=== PATIENT | female | born 1970 | race Caucasian/White ===

== ENCOUNTER 2019-05-07 12:39 | Emergency (ER) | payer OTHER, SELFPAY ==
[2019-05-07 12:42] VITALS: BP 116/86; PULSE 76; RESP 18; TEMP 36.9; O2SAT 100
--- NOTE | 2019-05-07 12:53 | ED.GENADULT ---
HPI - General Adult General Chief complaint: Dizziness Stated complaint: dizzy/weak Time Seen by Provider: 05/07/19 13:06 Source: patient and RN notes reviewed Mode of arrival: ambulatory Limitations: no limitations History of Present Illness HPI narrative: This is a 48 years old female presents to the office with multiple complaints. Complains of not feeling well/right since yesterday. Described as feeling fatigue. She also reports feeling dizziness/lightheaded this morning with urinary urgency/frequency. She was at work this morning, states her co-worker thought she looks pale; so she checked her blood sugar which was 94. Her son had influenza last week. She works at [employer]. She recently had a thorough blood work include EGK for her pre test for her gastric bypass procedure. She does not smoke. Related Data Home Medications Medication Instructions Recorded Confirmed albuterol sulfate 90 mcg/actuation 2 puff INHALATION Q4H PRN gm 04/25/19 aerosol inhaler alprazolam 0.5 mg tablet 0.5 mg PO TID 04/25/19 buspirone 7.5 mg tablet 15 mg PO BID tablet 04/25/19 levalbuterol HCl 1.25 mg/3 mL 1.25 mg INHALATION Q4H 04/25/19 solution for nebulization trazodone 100 mg tablet 150 mg PO DAILY tablet 04/25/19 Allergies Allergy/AdvReac Type Severity Reaction Status Date / Time No Known Allergies Allergy Verified 05/07/19 12:54 Review of Systems Review of Systems: Narrative: CONSTITUTIONAL: Denies fever EYES: Denies visual changes ENT: Denies sore throat or ears pain. Reports runny nose/congestion contribute to allergies/cold weather CARDIOVASCULAR: Denies chest pain, palpitation, edema RESPIRATORY: Denies wheezing. Reports cough with chest tightness at times contribute to asthma. GASTROINTESTINAL: Denies abdominal pain, nausea, vomiting, diarrhea. GENITOURINARY: Denies blood in urinary or abnormal discharge. SKIN: Denies rash MUSCULOSKELETAL: Denies acute back pain NEUROLOGIC: Reports episodic lightheadedness/dizziness at times. [facility] Past Medical History Medical History Acute midline thoracic back pain Anxiety disorder, unspecified Cervical pain (neck) Chronic fatigue Depression Elevated fasting glucose Fatigue Hx of sleep apnea Hyperlipidemia Hypothyroidism (acquired) Low blood hemoglobin A RUI (obstructive sleep apnea) Persistent headaches Unspecified asthma, uncomplicated Vitamin deficiency, unspecified Weight gain Family History Family History (Updated 05/07/19 @ 13:29 by KYLER Flores) Father Hypertension Other Diabetes mellitus Social History Social History Smoking status: Never smoker Second hand tobacco smoke exposure: No Alcohol intake: current Comments At time of signature, I agree with nursing past medical, surgical, social and family history. There is no relevant family history pertinent to the presenting complaint. Exam Narrative: Exam Narrative: GENERAL: This is a well-nourished, well-developed patient, in no apparent distress. EYES: PERRL. No nystagmus. sclera clear/white. Vision is grossly intact. EARS: External ears normal, auditory canals clear and without drainage, TMs normal without perforation. Hearing grossly intact. NOSE: External nose normal with no obvious nasal discharge, nares without redness, no rhinorrhea. THROAT: Mucous membranes moist, posterior pharynx clear. NECK: Neck supple, non-tender without lymphadenopathy, masses or thyromegaly. CARDIOVASCULAR: Regular rate and rhythm without murmurs, gallops, or rubs. RESPIRATORY: Clear to auscultation. Breath sounds equal bilaterally. No wheezes, rales, or rhonchi. GASTROINTESTINAL: Abdomen soft, non-tender, nondistended. Bowel sounds are active. No hepato-splenomegaly, or palpable masses. No guarding. SKIN: warm, intact with no suspicious lesions or rash, good texture and turgor.
== END 2019-05-07 13:25 | disposition home or self-care (01) ==
PROVIDERS: Emergency Provider Nurse Practitioner; PCP Family Medicine
DX: B34.9 Viral infection, unspecified (principal); F41.9 Anxiety disorder, unspecified; F32.9 Major depressive disorder, single episode, unspecified; E78.5 Hyperlipidemia, unspecified; E03.9 Hypothyroidism, unspecified; G47.33 Obstructive sleep apnea (adult) (pediatric)
CPT/HCPCS: 81003; 87081; 87804; 87880; 99213; G0463

== ENCOUNTER 2019-06-12 10:46 | Outpatient (CLI) | payer OTHER, SELFPAY ==
--- NOTE | ~2019-06-12 | XR_ITS ---
EXAMINATION: XR chest 2V 06/12/2019 10:59 INDICATION: Unspecified asthma. Dyspnea. PROCEDURE: 2 view chest COMPARISON: 06/23/2013 FINDINGS: The lungs are clear. The cardiomediastinal silhouette is within normal limits. There are no pleural effusions. There is no pneumothorax suspected. IMPRESSION: 1: NO ACUTE CARDIOPULMONARY DISEASE. Reviewed, dictated and finalized at location A.
== END 2019-06-12 10:47 | disposition home or self-care (01) ==
LOC: ANHIMG 10:49
PROVIDERS: PCP Family Medicine; Visit Provider Nurse Practitioner Family
DX: J45.909 Unspecified asthma, uncomplicated (principal); R06.02 Shortness of breath
CPT/HCPCS: 71046

== ENCOUNTER 2020-06-01 12:39 | Emergency (ER) | payer OTHER, SELFPAY ==
[2020-06-01 12:50] VITALS: BP 107/66; PULSE 61; RESP 16; TEMP 36.7; O2SAT 98
--- NOTE | 2020-06-01 13:01 | ED.URI ---
HPI - URI/Sore Throat General Chief Complaint: Upper Respiratory Infection Stated Complaint: SORE THROAT/STREP EXPOSURE Time Seen by Provider: 06/01/20 12:50 Source: patient and RN notes reviewed Mode of arrival: ambulatory Limitations: no limitations History of Present Illness HPI Narrative: 49-year-old female presents with concern for sore throat, general fatigue and body aches that started last night. Reports her son who lives in her home had diagnosed strep throat last week. Reports that she also has chronic rhinorrhea, unrelated to her current sore throat. 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 She denies any known fever, chills, sweats, headache, nausea, vomiting, loss of sense of taste or smell. MD elicited complaint: sore throat Related Data Home Medications Medication Instructions Recorded Confirmed buspirone 7.5 mg tablet 15 mg PO BID tablet 04/25/19 05/07/19 levalbuterol HCl 1.25 mg/3 mL 1.25 mg INHALATION Q4H 04/25/19 05/07/19 solution for nebulization trazodone 100 mg tablet 150 mg PO DAILY tablet 04/25/19 05/07/19 duloxetine 60 mg capsule,delayed 60 mg PO DAILY 05/02/20 release Allergies Allergy/AdvReac Type Severity Reaction Status Date / Time No Known Allergies Allergy Verified 05/02/20 16:53 Review of Systems Review of Systems: Narrative: CONSTITUTIONAL: Denies malaise, chills, sweats, or fever. Reports fatigue EYES: Denies visual changes, redness, or discharge. ENT: Reports congestion, sinus pain, otalgia. Reports rhinorrhea and sore throat. CARDIOVASCULAR: Denies chest pain, palpitations, or edema. RESPIRATORY: Reports cough. Denies dyspnea. GASTROINTESTINAL: Denies abdominal pain, nausea, vomiting, diarrhea SKIN: Denies rash or itching. MUSCULOSKELETAL: Denies myalgia. NEUROLOGIC: Denies headache. All systems reviewed & are unremarkable except as noted in HPI and below PMFSH Past Medical History Medical History (Updated 06/01/20 @ 13:03 by Michelle Weinstein NP) Acute midline thoracic back pain Anxiety Anxiety disorder, unspecified BMI 32.0-32.9,adult Cervical pain (neck) Chronic fatigue Depression Elevated fasting glucose Fatigue Hx of sleep apnea Hyperlipidemia Hypothyroidism (acquired) Low blood hemoglobin A RUI (obstructive sleep apnea) Persistent headaches Unspecified asthma, uncomplicated Vitamin deficiency, unspecified Weight gain Surgical History Surgical History History of sleeve gastrectomy Family History Family History Father Hypertension Other Diabetes mellitus Social History Social History Smoking status: Never smoker Second hand tobacco smoke exposure: No Alcohol intake: current Comments At time of signature, agree with nursing past medical, surgical, social and family history. There is no relevant family history pertinent to the presenting complaint Exam Narrative: Exam Narrative: GENERAL: Well-appearing, well-nourished, and in no acute distress. HEAD: Normocephalic EYES: PERRLA, conjunctivae clear ENT: Nares clear, turbinates erythematous, clear discharge. Mucous membranes moist. TM pearly bonner with dull light reflex bilaterally; no tragal tenderness. Oropharynx erythematous without lesions. Tonsils enlarged and without exudate, no drooling, no hoarseness, no trismus, uvula midline. NECK: Supple. No lymphadenopathy CHEST: Clear to auscultation, breath sounds equal. No wheezing, rhonchi, rales, or stridor. No respiratory distress, speaks in full sentences. HEART: Regular rate and rhythm. No murmur heard. SKIN: Warm, dry, no rash. NEURO: Alert and oriented x3. PSYCH: Normal mood and affect Course Course Emergency Course: Patient is aware of diagnosis, understands and agrees to treatment plan. Anticipatory guidance given. Patient agree
== END 2020-06-01 13:07 | disposition home or self-care (01) ==
PROVIDERS: Emergency Provider Nurse Practitioner; PCP Family Medicine
DX: J03.90 Acute tonsillitis, unspecified (principal); Z20.818 Contact with and (suspected) exposure to other bacterial communicable diseases; F41.9 Anxiety disorder, unspecified; F32.9 Major depressive disorder, single episode, unspecified; G47.30 Sleep apnea, unspecified; E78.5 Hyperlipidemia, unspecified; E03.9 Hypothyroidism, unspecified; G47.33 Obstructive sleep apnea (adult) (pediatric); Z98.84 Bariatric surgery status
CPT/HCPCS: 87081; 87880; 99213; G0463

== ENCOUNTER 2020-10-13 15:55 | Emergency (ER) | payer OTHER, SELFPAY ==
[2020-10-13 16:05] VITALS: BP 101/70; PULSE 77; RESP 17; TEMP 36.4; O2SAT 98
[2020-10-13] MEDS: ONDANSETRON HCL ODT 4 MG TABLET PO (16:18)
--- NOTE | 2020-10-13 16:39 | ED.URI ---
HPI - URI/Sore Throat General Chief Complaint: Upper Respiratory Infection Stated Complaint: Weakness,Shortness of breathe Source: patient and RN notes reviewed Mode of arrival: ambulatory History of Present Illness HPI Narrative: This is a 49-year-old female who presented to urgent care with complaints of weakness, fatigue, shortness of breath and nausea and reported hypotensive. According to patient's her blood pressure earlier was 106/70. According to patient symptoms started last night. Productive cough, headache, vomiting, diarrhea,CP, palpitation, extremity numbness, lightheadedness, dizziness, constipation, diarrhea, chills, or fever. Patient Covid test negative treated for common cold Related Data Home Medications Medication Instructions Recorded Confirmed buspirone 7.5 mg tablet 15 mg PO BID tablet 04/25/19 10/13/20 trazodone 100 mg tablet 150 mg PO DAILY tablet 04/25/19 10/13/20 Allergies Allergy/AdvReac Type Severity Reaction Status Date / Time No Known Allergies Allergy Verified 10/13/20 16:23 Review of Systems Review of Systems: A 14 organ system Review of Systems was performed and pertinent positives included in the HPI, otherwise remaining ROS is negative. [facility] Past Medical History Medical History (Updated 10/13/20 @ 16:32 by ERMIAS Ramachandran) Acute midline thoracic back pain Anxiety Anxiety disorder, unspecified BMI 32.0-32.9,adult Cervical pain (neck) Chronic fatigue Depression Elevated fasting glucose Fatigue Hx of sleep apnea Hyperlipidemia Hypothyroidism (acquired) Low blood hemoglobin A RUI (obstructive sleep apnea) Persistent headaches Unspecified asthma, uncomplicated Vitamin deficiency, unspecified Weight gain Surgical History Surgical History History of sleeve gastrectomy Family History Family History Father Hypertension Other Diabetes mellitus Social History Social History Smoking status: Never smoker Second hand tobacco smoke exposure: No Alcohol intake: current Gender identity (if verbalized by the patient): Female Exam Narrative: GENERAL: This is a well-nourished, well-developed patient, in no apparent distress. HEAD: normocephalic, atraumatic. EYES: PERRL. Sclera clear/white. Vision is grossly intact. EARS: External ears normal, auditory canals clear and without drainage, TMs normal without perforation. Hearing grossly intact. NOSE: External nose normal with no obvious nasal discharge, nares without redness, no rhinorrhea. THROAT: Mucous membranes moist, posterior pharynx clear. NECK: Neck supple, non-tender without lymphadenopathy, masses or thyromegaly. CARDIOVASCULAR: Regular rate and rhythm without murmurs, gallops, or rubs. RESPIRATORY: Clear to auscultation. Breath sounds equal bilaterally. No wheezes, rales, or rhonchi. GASTROINTESTINAL: Abdomen soft, non-tender, nondistended. Bowel sounds are active. No hepato-splenomegaly, or palpable masses. No guarding. SKIN: warm, intact with no suspicious lesions or rash, good texture and turgor. NEURO: awake, alert, and oriented to person, place and time. There were no obvious focal neurologic abnormalities. Steady gait EXTREMITIES: Normal range of motion. No edema. No calf tenderness. Negative Homans sign bilaterally. BACK: Nontender without deformity or crepitance. No flank tenderness. Course Course Emergency Course: Patient treated with dexamethasone due to shortness of breath and Zofran for nausea Vital Signs Vital signs: Vital Signs Temperature 97.5 F L 10/13/20 16:05 Pulse Rate 77 10/13/20 16:05 Respiratory Rate 17 10/13/20 16:05 Blood Pressure 101/70 10/13/20 16:05 Pulse Oximetry 98 10/13/20 16:05 Temperature 97.5 F L 10/13/20 16:05 Pulse Rate 77 10/13/20 16:05 Respiratory Rate 17 10/13/20 16:05 Blood Pressure 101/70
[2020-10-14 20:11] LABS: SARS-CoV-2 RNA PCR Negative
== END 2020-10-13 16:44 | disposition home or self-care (01) ==
PROVIDERS: Emergency Provider Nurse Practitioner; PCP Family Medicine
DX: J00 Acute nasopharyngitis [common cold] (principal); Z20.822 Contact with and (suspected) exposure to COVID-19; F41.9 Anxiety disorder, unspecified; F32.9 Major depressive disorder, single episode, unspecified; E78.5 Hyperlipidemia, unspecified; E03.9 Hypothyroidism, unspecified; G47.33 Obstructive sleep apnea (adult) (pediatric); J45.909 Unspecified asthma, uncomplicated; Z98.84 Bariatric surgery status
CPT/HCPCS: 87426; 99213; A9270; C9803; G0463; U0003; U0005

== ENCOUNTER 2021-03-20 16:30 | Outpatient (CLI) | payer OTHER, SELFPAY ==
--- NOTE | 2021-03-20 14:48 | ECG_ITS ---
Measurements Intervals [place] Rate: 74 P: 38 MD: 160 QRS: 6 QRSD: 109 T: 3 QT: 373 QTc: 415 Interpretive Statements SINUS RHYTHM BORDERLINE T WAVE ABNORMALITY- INFERIOR LEADS BORDERLINE ECG Electronically Signed On 03-20-2021 15:05:10 [employer] by Keith Coleman D.O.
[2021-03-20 15:06] LABS: Alanine Aminotransferase 22 U/L (4-35); Albumin Level 4.1 g/dL (3.5-5.1); Alkaline Phosphatase 101 U/L (38-126); Anion Gap 7 mmol/L (8-16); Aspartate Amino Transferase 24 U/L (14-36); Bilirubin,Total 0.4 mg/dL (0.2-1.3); Blood Urea Nitrogen 13 mg/dL (7-17); Calcium 9.4 mg/dL (8.4-10.2); Carbon Dioxide 26 mmol/L (22-30); Chloride 104 mmol/L (98-107); Estimated Glomerular Filt Rate > 60; Glucose 95 mg/dL (65-110); Potassium 4.1 mmol/L (3.4-5.0); Sodium 137 mmol/L (137-145)
[2021-03-22 09:09] LABS: CMV IgG Antibody <0.60 U/mL (<0.60)
[2021-03-22 22:25] LABS: EBV Nuclear Ab Antibody <18.00 U/mL (<18.00); EBV Nuclear Ab Interpretation Negative; EBV Virus Capsid Ag IgG Ab <18.00 U/mL (<18.00); EBV Virus Capsid Ag IgM Ab <36.00 U/mL (<36.00)
[2021-03-23 09:30] LABS: CMV IgM Antibody <30.00 AU/mL (<30.00)
== END 2021-03-20 16:31 | disposition home or self-care (01) ==
PROVIDERS: PCP Family Medicine; Visit Provider Physician Assistant Medical
DX: R94.31 Abnormal electrocardiogram [ECG] [EKG] (principal); K85.90 Acute pancreatitis without necrosis or infection, unspecified; R74.01 Elevation of levels of liver transaminase levels; R51.9 Headache, unspecified
CPT/HCPCS: 36415; 80053; 86644; 86645; 86664; 86665; 93005

== ENCOUNTER 2023-09-13 09:10 | Outpatient (CLI) | payer OTHER, SELFPAY ==
[2023-09-13 09:56] LABS: Hematocrit 41.5 % (37.0-47.0); Hemoglobin 13.1 g/dL (12.0-15.0); Mean Corpuscular HGB Conc 31.6 g/dl (32-36); Mean Corpuscular Hemoglobin 28.7 pg (26-34); Mean Platelet Volume 10.1 fl (7.4-10.4); Platelet Count Result 265 k/mm3 (150-375); Red Blood Count 4.56 M/mm3 (4.2-5.4); Red Cell Distribution Width 12.6 % (11.5-14.5); White Blood Count 4.9 K/mm3 (4.5-10.0)
[2023-09-13 10:13] LABS: Alanine Aminotransferase 19 U/L (6-35); Albumin Level 4.1 g/dL (3.5-5.1); Alkaline Phosphatase 69 U/L (38-126); Anion Gap 6 mmol/L (4-12); Aspartate Amino Transferase 24 U/L (14-36); Bilirubin,Total 0.5 mg/dL (0.2-1.3); Blood Urea Nitrogen 16 mg/dL (7-17); Calcium 9.1 mg/dL (8.4-10.2); Carbon Dioxide 30 mmol/L (22-30); Chloride 101 mmol/L (98-107); Cholesterol 227 mg/dL (0-200); Estimated Glomerular Filt Rate > 60; Glucose 85 mg/dL (65-110); HDL Direct 83 mg/dL; Potassium 4.1 mmol/L (3.4-5.0); Sodium 137 mmol/L (137-145); Triglycerides 71 mg/dL (<150)
[2023-09-13 10:24] LABS: LDL Cholesterol Direct 134 mg/dL
[2023-09-13 10:27] LABS: T4 Thyroxine 9.57 ug/dL (5.53-11.0)
[2023-09-13 10:30] LABS: Vitamin D 25 Hydroxy 39.2 ng/mL
== END 2023-09-13 09:11 | disposition home or self-care (01) ==
LOC: ANHLAB 09:11
PROVIDERS: PCP Family Medicine; Visit Provider Physician Assistant Medical
DX: R79.89 Other specified abnormal findings of blood chemistry (principal); E03.9 Hypothyroidism, unspecified; E55.9 Vitamin D deficiency, unspecified
CPT/HCPCS: 36415; 80053; 80061; 82306; 84436; 84443; 85027

== ENCOUNTER 2024-01-13 13:12 | Outpatient (CLI) | payer OTHER, SELFPAY ==
--- NOTE | ~2024-01-13 | XR_ITS ---
EXAMINATION: XR lumbar spine min 4V DATE: 01/13/2024 13:23 INDICATION: Low back pain, unspecified. TECHNIQUE: 5 views of lumbar spine were obtained. COMPARISON: None. FINDINGS: There is 4 degrees dextrocurvature of lumbar spine. Vertebral body heights are normal. Ther e is mildly decreased disc height at T11-T12, T12-L1, and L1-L2. There is multilevel [id number] facet joint osteoarthritis. Surgical clips in the right upper quadrant are likely from cholecystecto my. IMPRESSION: 1. Mild lumbar and lower thoracic spondylosis. Reviewed, dictated and finalized at location A. JOCKEY
== END 2024-01-13 13:13 | disposition home or self-care (01) ==
LOC: MICIMG 13:13
PROVIDERS: PCP Nurse Practitioner Family; Visit Provider Nurse Practitioner Family
DX: M43.06 Spondylolysis, lumbar region (principal); M43.04 Spondylolysis, thoracic region
CPT/HCPCS: 72110

== ENCOUNTER 2025-02-19 10:58 | Emergency (ER) | payer OTHER, SELFPAY ==
--- OUTSIDE RECORDS SUMMARY | 2025-02-19 11:00 | XMS_ITS | Encounter Summary ---
Author Organization [facility] Address [address] [place] [address] Care Team Providers Care Preschool Assistant Director Name Role Phone Simone Salvador MD Primary Care Provider [phone] Encounter Details Date Type Department Care Team (Late st Contact Info) Description 07/21/2016 Abstract [facility] CONVERSION [address] [place] [address] , Generic ConversionMD Social History Tobacco Use Types Packs/Day Years Used Date Smoking Tobacco: Never Assessed Comments Unknown Sex and Gender Information Value Date Recorded Sex Assigned at Not on file Legal Sex Female 7:57 PM CDT Gender Identity Not on file Sexual Orientation Not on file documented as of this encounter Plan of Treatment Not on file documented as of this encounter Visit Diagnoses Not on filedocumented in this encounter Additional Health Concerns Infection Onset Date Last Indicated Resolved Time COVID-19 Rule Out 03/04/2021 03/04/2021 03/04/2021 8:01 PM PROVIDER RELATIONS REPRESENTATIVE documented as of this encounter Care Teams Preschool Assistant Director Relationship Specialty Start Date End Date Simone Salvador MD [address] [place] [id number] PCP - General FAMILY PRACTICE 10/17/18 documented as of this encounter
--- OUTSIDE RECORDS SUMMARY | 2025-02-19 11:00 | XMS_ITS | Clinical Summary ---
Author Organization [facility] [employer] [facility] Address [address] [place] [address] Care Team Providers Care Cardiologist Name Role Phone Unavailable Primary Care Provider Unavailabl e Social History Tobacco Use Types Packs/Day Years Used Date Smoking Tobacco: Never Assessed Comments Unknown Sex and Gender Information Value Date Recorded Sex Assigned at Not on file Legal Sex Female 7:15 PM EDT Gender Identity Not on file Sexual Orientation Not on file Plan of Treatment Not on file Medical Devices Not on file Insurance
--- OUTSIDE RECORDS SUMMARY | 2025-02-19 11:00 | XMS_ITS | Clinical Summary ---
Author Organization [facility] Address [address] [place] [address] Care Team Providers Care Lumber Buyer Name Role Phone Simone Salvador MD Primary Care Provider [phone] Allergies No known active allergies Medications ALPRAZolam 0.5 MG tablet Take 0.5 mg by mouth 3 (three) times daily as needed for Anxiety. 2 9 Active montelukast 10 MG tablet Take 10 mg by mouth daily. 3 9 Active busPIRone 15 MG tablet Take 15 mg by mouth 2 (two) times daily. 5 9 Active levothyroxine 100 MCG tablet Take 100 mcg by mouth daily. 0 9 Active traZODone 150 MG tablet TK 1 T PO QHS 5 9 Active ibuprofen 800 MG tablet Take 1 tablet by mouth 3 (three) times daily as needed for Pain. 2 Active Multiple Vitamins-Minerals (MULTIVITAMIN ADULT OR) Take 1 tablet by mouth daily. Active probiotic capsule Take 1 capsule by mouth daily with breakfast. Active senna-docusate 8.6-50 MG tablet Take 2 tablets by mouth daily. Active DULoxetine 60 MG capsule Take 120 mg by mouth daily. Active fluticasone propionate 50 MCG/ACT nasal spray 2 sprays by Nasal route daily. Active HYDROcodone-acetami nophen 5-325 MG tabletIndications:A cute Pain < 3 Day Supply Take 1 tablet by mouth every 6 (six) hours as needed. Indications: Acute Pain < 3 Day Supply 12 tablet 2 Active ondansetron 4 MG disintegrating tablet Take 1 tablet (4 mg total) by mouth every 8 (eight) hours as needed for Nausea. 20 tablet 2 Active HYDROcodone-acetami nophen 5-325 MG tabletIndications:A cute Pain < 7 Day Supply Take 1 tablet by mouth every 4 (four) hours as needed for Pain. Indications: Acute Pain < 7 Day Supply 10 tablet 2 Active Active Problems Problem Noted Date Diagnosed Date Acute pancreatitis 03/04/2021 Obesities, morbid 05/11/2019 History of hysterectomy, supracervical 9 Ankle injury 10/01/2011 Resolved Problems Problem Noted Date Diagnosed Date Resolved Date Encounter for preventive health examination 10/01/2011 03/06/2021 Immunizations Immunization Administration Dates Next Due Tdap (Adacel) 06/04/2021 Family History Medical History Relation Comments Breast Cancer Maternal Grandmother Relation Status Comments Maternal Grandmother Social History Tobacco Use Types Packs/Day Years Used Date Smoking Tobacco: Never Smokeless Tobacco: Never Alcohol Use Standard Drinks/Week Comments Yes 0 (1 standard drink = 0.6 oz pur e alcohol) occ Humiliation, Afraid, Rape, and Kick questionnair e Answer Date Recorded Fear of Current or Ex-Partner No Emotionally Abused No 10/29/2018 Physically Abused No 10/29/2018 Sexually Abused No 10/29/2018 Comments No Sex and Gender Information Value Date Recorded Sex Assigned at Not on file Legal Sex Female 7:57 PM CDT Gender Identity Not on file Sexual Orientation Not on file Last Filed Vital Signs Vital Sign Reading Time Taken Comments Blood Pressure 110/66 06/04/2021 6:10 PM CDT Pulse 70 06/04/2021 6:10 PM CDT Temperature 36.7 C (98 F) 06/04/2021 4:46 PM CDT Respiratory Rate 18 06/04/2021 6:10 PM CDT Oxygen Saturation 99% 06/04/2021 6:10 PM CDT Inhaled Oxygen Concentration - - Weight 90.7 kg (200 lb) 06/04/2021 4:46 PM CDT Height 162.6 cm (5' 4) 06/04/2021 4:46 PM CDT Body Mass Index 34.33 06/04/2021 4:46 PM CDT Plan of Treatment Health Maintenance Due Date Last Done Comments Colorectal Cancer Screening Colonoscopy (10 Years) 1970 Annual Physical 1973 Hepatitis C 1988 Hepatitis B Vaccines (1 of 3 - 19+ 3-dose series) 1989 Pneumococcal Vaccine: 50+ Ye ars (1 of 1 - PCV) 2020 Zoster Vaccines (1 of 2) 2020 Mammogram Screening 11/24/2020 11/24/2018 COVID-19 Vaccine (2 - 2024-2 6 season) 2024 04/23/2021 Influenza Adult (#1) 2024 DTaP, Tdap and Td Vaccines ( 2 - Td or Tdap) 06/05/2031 06/04/2021 Hepatitis A Vaccines Aged Out No long er eligible based on patient's age to complete this topic Meningococcal B Vaccine Aged Out No l onger eligible based on patient's age to complete this topic Meningococcal Vaccine Aged Out No [place] naveen eligible based on patient's age to complete this topic RSV Immunizations Under 20 Months Aged Out No longer eligible based on patient's age to complete this topic Goals Goal Patient Goal Type Associated Problems Recent Progress Patient-Stated? Author Health - patient able to perform ADLs independently General No Jamila Palacios, administrative library assistant Procedure Name Priority Date/Time Associated Diagnosis Comments MG SCREENING W GUERO VIJAY DIGI Routine 11/24/2018 12:51 PM CDT Encounter for screening mammogram for malignant neoplasm of breast from Last 3 Months or Most Recently Relevant to Health Maintenance Results * MG SCREENING W GUERO VIJAY DIGI (11/24/2018 12:51 PM CDT) Anatomical Region Laterality Modality Breast Bilateral Mammography 11/24/2018 1:17 PM CDT Narrative 11/24/2018 1:18 PM CDT IMAGING STUDIES: MG SCREENING W GUERO VIJAY DIGI DATE: 11/24/2018 12:25 PM INDICATION: screening. COMPARISON: 10/11/2017, 04/28/2018. FINDINGS: Bilateral CC and MLO views, digital with CAD. 2-D with 3-D tomosynthesis. Breast compostition: Category B - There are areas of scattered fibroglandular density. No suspicious microcalcification, worrisome mass or evidence of architectural distortion. No skin thickening or nipple retraction. Benign microcalcifications. CONCLUSION: No mammographic evidence of malignancy. BI-RADS Category 2 - benign findings. Routine screening mammography recommended [facility] BI-RADS Categories: Category 0 - needs additional imaging evaluation. Category 1 - negative. Category 2 - benign findings. Category 3 - probably benign findings, but short interval follow-up is recommended. Category 4 - suspicious abnormality and biopsy should be considered though the lesion may well be benign. Category 5 - highly suggestive of malignancy and appropriate action should be taken. A) A negative report should not delay a biopsy if a dominant or clinically suspicious mass is present. B) Adenosis and dense breasts may obscure an underlying neoplasm. C) Study interpreted with computer aided detection. Interpreted By: Cristofer Ramirez, 11/24/2018 1:17 PM Amy Mcgregor MD MAMMO Final Result from Last 3 Months or Most Recently Relevant to Health Maintenance Insurance Advance Directives * Full Code (Latest Code Status on File) Date Activated Date Inactivated Comments 03/05/2021 10:51 AM 03/08/2021 2:08 PM * Full Code Date Activated Date Inactivated Comments 11/04/2018 10:54 AM 11/05/2018 1:30 PM Care Teams Lumber Buyer Relationship Specialty Start Date End Date Simone Salvador MD [address] [place] [address] PCP - General FAMILY PRACTICE 10/17/18
--- OUTSIDE RECORDS SUMMARY | 2025-02-19 11:00 | XMS_ITS | Clinical Summary ---
Author Organization [facility] Address [address] [place] [address] Care Team Providers Care Lining Sewer Name Role Phone Unavailable Primary Care Provider Unavailabl e Source Comments [facility],non-owned Affiliates and Associated Physician Practices is amultiple site organization consisting of ambulatory clinics and hospital sitesin [place], [place], [place] and [place]. This disclosure is being madepursuant to the Care Everywhere program and may not contain all information available regarding this patient. Last updated 17.[facility] Social History Tobacco Use Types Packs/Day Years Used Date Smoking Tobacco: Never Assessed Comments Unknown Sex and Gender Information Value Date Recorded Sex Assigned at Not on file Legal Sex Female 11:30 AM CDT Gender Identity Not on file Sexual Orientation Not on file Plan of Treatment Health Maintenance Due Date Last Done Comments COLOGUARD (AGES 45-75) - COL ON CA SCREENING 1970 COLON MONITORING 1970 COLONOSCOPY - COLON CA SCREENING 1970 CT COLONOGRAPHY - COLON CA SCREENING 1970 Colorectal Cancer Screening 1970 FIT - COLON CA SCREENING 1970 FLEX SIG - COLON CA SCREENING 1970 LIPID TESTING 1970 MAMMOGRAM 1970 HIV SCREENING 1985 HEPATITIS C SCREENING 11/10/1988 DTAP/TDAP/TD VACCINES (1 - Tdap) 1989 HEPATITIS B VACCINE (1 of 3 - 19+ 3-dose series) 1989 PNEUMOCOCCAL VACCINE 50+ (1 of 1 - PCV) 2020 ZOSTER VACCINE (1 of 2) 2020 DEPRESSION SCREENING 02/26/2024 COVID-19 VACCINE (1 - 2024-2 6 season) 2024 INFLUENZA VACCINE (#1) 2024 HIB VACCINE Aged Out No longer eligi ble based on patient's age to complete this topic HPV VACCINE Aged Out No longer eligi ble based on patient's age to complete this topic MENINGOCOCCAL (Group B) VACC INE SHARED DECISION-MAKING Aged Out No longer eligibl e based on patient's age to complete this topic MENINGOCOCCAL GROUPS A/C/Y/W VACCINE Aged Out No longer eligible b ased on patient's age to complete this topic
--- OUTSIDE RECORDS SUMMARY | 2025-02-19 11:00 | XMS_ITS | Encounter Summary ---
Author Organization [facility] Address [address] [place] [address] Care Team Providers Care Explosives Detonator Name Role Phone Unavailable Primary Care Provider Unavailabl e Encounter Details Date Type Department Care Team (Late st Contact Info) Description 07/28/2019 Lab Requisition [facility] [address] [place] [address] Social History Tobacco Use Types Packs/Day Years Used Date Smoking Tobacco: Never Assessed Comments Unknown Sex and Gender Information Value Date Recorded Sex Assigned at Not on file Legal Sex Female 11:30 AM CDT Gender Identity Not on file Sexual Orientation Not on file documented as of this encounter Plan of Treatment Not on file documented as of this encounter Procedures Procedure Name Priority Date/Time Associated Diagnosis Comments SARS-COV-2 (COVID-19) IN HOUSE Routine 07/27/2019 3:48 PM CDT documented in this encounter Results * SARS-COV-2 (COVID-19) IN HOUSE (07/27/2019 3:48 PM CDT) COVID-19 PCR Not detected Not detected, Invalid 07/28/2019 8:[address] [facility] Microbiology SPECIMEN FROM NASOPHARYNGEAL STRUCTURE / Unknown Collection / Unknown 07/27/2019 3:48 PM CDT 07/28/2019 11:[address] [facility] - 07/28/2019 8:54 PM CDT This Real Time RT-PCR assay was developed and its performance characteristics determined by [facility]. This test has been authorized by the Food and Drug administration (FDA)under an Emergency Use Authorization (EUA). This test has been validated in accordance with the FDA's guidance document Policy for Diagnostic Testing in Laboratories Certified to perform High Complexity Testing under CLIA prior to Emergency Use Authorization for Coronavirus Disease-2019 during the Public Health Emergency issued on April 25, 2019. FDA independent review of this validation is pending. This test is only authorized for the duration of time the declaration that circumstances exist justifying the authorization of emergency use of in vitro diagnostic tests for detection of SARS-CoV-2 virus and/or diagnosis of COVID-19 infection under section 564(b)(1) of the Act, 21 U.S.C 360bbb-3 (b)(1), unless the authorization is terminated or revoked sooner. us LAB - MICROBIOLOGY ORDERABLES Fi nal Result [facility] [address] [place], [place] [address], [facility] [phone] documented in this encounter Visit Diagnoses Not on filedocumented in this encounter Additional Health Concerns Infection Onset Date Last Indicated Resolved Time COVID-19 Under Investigation 07/28/2019 07/27/2019 07/28/2019 8:54 PM CDT documented as of this encounter
--- OUTSIDE RECORDS SUMMARY | 2025-02-19 11:00 | XMS_ITS | Clinical Summary ---
Author Organization [facility] Address [address] [place] [address] Care Team Providers Care Volunteer Services Coordinator Name Role Phone Simone Salvador MD Primary Care Provider [phone] Allergies No known active allergies Medications * This document contains information received from the source organization and may not represent a complete record from that organization. albuterol 2.5 mg /3 mL (0.083 %) nebulizer solutionIndicat ions:Acute Asthma Attack,mild Take 3 mL (2.5 mg total) by nebulization as needed for wheezing or shortness of breath 8 Active ALPRAZolam (XANAX) 0.5 mg tabletIndicatio ns:anxiety Take 1 tablet (0.5 mg total) by mouth 3 (three) times a day as needed for anxiety 9 Active busPIRone (BUSPAR) 15 mg tabletIndicatio ns:Generalized Anxiety Disorder Take 1 tablet (15 mg total) by mouth 2 (two) times a day [address] (CYMBALTA) 60 mg capsuleIndicati ons:Anxiety with Depression Take 2 capsules (120 mg total) by mouth every morning 1 Active levothyroxine (SYNTHROID) 100 mcg tabletIndicatio ns:hypothyroidi sm Take 1 tablet (100 mcg total) by mouth house manager before breakfast 1 Active montelukast (SINGULAIR) 10 mg tabletIndicatio ns:Maintenance Therapy for Asthma,Seasonal Allergic Rhinitis Take 1 tablet (10 mg total) by mouth every morning 1 Active multivitamin tabletIndicatio ns:Vitamin Deficiency Prevention Take 1 tablet by mouth every morning Active traZODone (DESYREL) 100 mg tabletIndicatio ns:insomnia associated with depression Take 2 tablets (200 mg total) by mouth nightly 2 tablets 4 Active sennosides (LAXATIVE PILLS ORAL)Indication s:constipation Take 1 tablet by mouth every morning Active Wegovy 0.5 mg/0.5 mL auto-injector ADMINISTER 0.5 MG UNDER THE SKIN WEEKLY FOR 4 WEEKS 4 Active lamoTRIgine (LaMICtal) 100 mg tablet 4 Active cetirizine (ZyrTEC) 10 mg tablet 4 Active Active Problems Problem Noted Date Diagnosed Date Encounter for cosmetic procedure 05/29/2023 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 Overall, low risk lesion. She may return to Dr. Castillo ([facility]) for her eye exams and she may return to [facility] as necessary. Assessment & Plan (12/14/2021 3:57 PM CDT): Referred from [facility] for new nevus noted on recent exam not seen on previous annual exams. She is asymptomatic. The lesion is small, flat, without fluid or orange pigment. Overall, appears low risk. Lesion is stable on 4-month follow-up today. Recommend observation for now, will re-evaluate in 6 months. Assessment & Plan (08/10/2021 4:16 PM CDT): Referred from [facility] for new nevus noted on recent exam. Patient has annual eye exams at [place] and was noted to have nevus OD at last exam. She is asymptomatic. The lesion is small, flat, without fluid or orange pigment. Overall, appears low risk. Recommend observation for now. History of colon polyps 12/16/2020 Overview (12/16/2020): Added automatically from request for surgery [id number] Family history of colonic polyps 12/16/2020 Overview (12/16/2020): Added automatically from request for surgery [id number] Acute non-recurrent sinusitis 01/13/2019 Mild intermittent asthma without complication Encounters Date Type Department Care Team Description 12/04/2024 Immunization [facility] [address] [place] [address] Yefri Ramírez RN from Last 3 Months Immunizations Immunization Administration Dates Next Due Influenza, Trivalent, Cell C ulture-based MDCK, Preservative Free, Antibiotic Free, Intramuscular 12/04/2024,12/02/2023 Influenza, Unspecified 11/26/2022 MMR 09/29/2024,07/30/2024 Pfizer SARS-CoV-2 Monovalent Vaccination (12+ Yrs) PURPLE 03/16/2020,02/24/2020 Tdap 06/04/2021 Surgical History Surgery Date Site/Laterality Comments SECTION x3, 1993, 1996, 2001 CHOLECYSTECTOMY 02/25/2010 - 02/24/2011 HYSTERECTOMY 10/26/2018 - 11/24/2018 GASTRIC BYPASS 02/25/2019 - 02/25/2020 COLONOSCOPY last one 12/2020 Medical History Medical History Date Comments Thyroid disorder Anxiety and depression Family History Medical History Relation Name Comments Glaucoma Father Macular degeneration Paternal Grandfather Cancer Paternal Grandmother Anesthesia problems Neg Hx Relation Name Status Comments Father Paternal Grandfather Paternal Grandmother Social History Tobacco Use Types Packs/Day Years Used Date Smoking Tobacco: Never Passive Smoke Exposure: Never Smokeless Tobacco: Never Tobacco Cessation:Counseling Given: Not Answered AUDIT-C Answer Date Recorded Q1: How often do you have a drink containing alc ohol? Monthly or less 08/16/2023 Q2: How many drinks containi ng alcohol do you have on a typical day when you are drinking? 1 or 2 08/16/2023 Q3: How often do you have si x or more drinks on one occasion? Never 08/16/2023 Personal Safety Answer Date Recorded Have you ever been in or are you currently in a harmful physical or emotional relationship or is someone making you feel afraid or unsafe? Denies 08/16/2023 Comments No Sex and Gender Information Value Date Recorded Sex Assigned at Not on file Legal Sex Female 5:02 PM REMOTE MEDICAL CODER Gender Identity Not on file Sexual Orientation Not on file Last Filed Vital Signs Vital Sign Reading Time Taken Comments Blood Pressure 115/76 08/16/2023 9:25 AM CDT Pulse 60 08/16/2023 9:25 AM CDT Temperature 36.2 C (97.2 F) 08/16/2023 9:00 AM CDT Respiratory Rate 18 08/16/2023 9:25 AM CDT Oxygen Saturation 100% 08/16/2023 9:25 AM CDT Inhaled Oxygen Concentration - - Weight 74.8 kg (165 lb) 08/16/2023 7:11 AM CDT Height 162.6 cm (5' 4) 08/16/2023 7:11 AM CDT Body Mass Index 28.32 08/16/2023 7:11 AM CDT Plan of Treatment Health Maintenance Due Date Last Done Comments Depression Screening 1970 Hepatitis C Screening 1970 Hepatitis B Screening 1988 Regular Well Visit/Exam 18-64 1988 Pneumococcal vaccine <65 (1 of 2 - PCV) 1989 Zoster Vaccine (1 of 2) 2020 Covid-19 Vaccine (4 - 2024-2 6 season) 2024 04/23/2021, 03/16/2020, 02/24/2020 Breast Cancer Screening-Mammogram 04/28/2025 04/28/2024, 04/09/2023, 03/01/2022, Additional history exists DTaP/Tdap/Td Vaccine (2 - Td or Tdap) 06/05/2031 06/04/2021 Colon Cancer Screening-Colonoscopy 08/15/2033 08/16/2023, 01/24/2021, 05/24/2014 Influenza Vaccine Completed 12/04/2024, , 11/26/2022 Procedures Procedure Name Priority Date/Time Associated Diagnosis Comments SCREENING MAMMOGRAM BILATERAL W SEBASTIÁN Schedule Routine, Read Routine (OP Routine) 04/28/2024 2:16 PM REMOTE MEDICAL CODER Screening mammogram, encounter for COLONOSCOPY 08/16/2023 8:36 AM CDT from Last 3 Months or Most Recently Relevant to Health Maintenance Results * Screening Mammogram Bilateral W Sebastián (04/28/2024 2:16 PM REMOTE MEDICAL CODER) Anatomical Region Laterality Modality Breast Bilateral Mammography Narrative 04/29/2024 9:47 AM REMOTE MEDICAL CODER Mammogram Technique: Bilateral Digital Breast Tomosynthesis, Bilateral C-view 2D Screening mammogram. Views obtained: bilateral craniocaudal and bilateral mediolateral oblique. Computer Aided Detection was performed. Mammogram Findings: The present examination has been compared to prior imaging studies performed at [facility] on 02/23/2021 and 04/09/2023, and at [facility] on 03/01/2022. There are scattered areas of fibroglandular density. There is no suspicious abnormality in either breast. Impression: There is no mammographic evidence of malignancy. Annual screening mammography is recommended. OVERALL FINAL ASSESSMENT: BI-RADS CATEGORY 1: Negative. Procedure Note Rhoda Sadler MD - 04/29/2024 Mammogram Technique: Bilateral Digital Breast Tomosynthesis, Bilateral C-view 2D Screening mammogram. Views obtained: bilateral craniocaudal and bilateral mediolateral oblique. Computer Aided Detection was performed. Mammogram Findings: The present examination has been compared to prior imaging studies performed at [facility] on 02/23/2021 and 04/09/2023, and at [facility] on 03/01/2022. There are scattered areas of fibroglandular density. There is no suspicious abnormality in either breast. Impression: There is no mammographic evidence of malignancy. Annual screening mammography is recommended. OVERALL FINAL ASSESSMENT: BI-RADS CATEGORY 1: Negative. us Self Screening Mammogram IMG MAMMO PROCEDURES Fi nal Result * Colonoscopy (08/16/2023 8:36 AM CDT) Anatomical Region Laterality Modality Other Narrative Procedure Note Rick Zapata MD - 08/16/2023 8:36 AM CDT ENDOSCOPY LAB Patient Name: Divya Barron Procedure Date: 08/16/2023 8:36 AM Date of : 1970 Admit Type: Outpatient Age: 52 Gender: Female Attending MD: iRck Zapata M.D. Room: [facility] 04 Note Status: Finalized Procedure: Colonoscopy Indications: High risk colon cancer surveillance: Personalhistory of colonic polyps Comorbidities See the other procedure note for documentation of comorbidities Providers: Rick Zapata M.D. Referring MD: Antoinette Lindsay PA-C Medicines: Monitored Anesthesia Care Complications: No immediate complications. Estimated Blood Loss: Estimated blood loss was minimal. Procedure: Pre-Anesthesia Assessment: - Prior to the procedure, a History and Physicalwas performed, and patient medications, allergies and sensitivities were reviewed. The patient'stolerance of previous anesthesia was reviewed. - Immediately prior to administration ofmedications, the patient was re-assessed for adequacy to receive sedatives. The benefits, risks and alternatives of theprocedure and sedation were discussed and informed consentwas obtained. All questions were answered. Please referto the signed informed consent document in the medical record. The scope was passed under direct vision.The [id number] was introduced through the anusand advanced to the terminal ileum. The colonoscopy was performed without difficulty. The patient tolerated the procedure well. The quality of the bowel preparation was evaluated using the BBPS (BostonBowel Preparation Scale) with scores of: Right Colon = 2 (minor amount of residual staining, small fragmentsof stool and/or opaque liquid, but mucosa seen well), Transverse Colon = 3 (entire mucosa seen well withno residual staining, small fragments of stool oropaque liquid) and Left Colon = 2 (minor amount ofresidual staining, small fragments of stool and/or opaque liquid, but mucosa seen well). The total BBPS score equals 7. Findings: The perianal and digital rectal examinations were normal. The terminal ileum appeared normal. A 5 mm polyp was found in the ascending colon. The polyp was sessile. The polyp was removed with a cold snare. Resection and retrieval were complete. Non-bleeding internal hemorrhoids were found during retroflexion. The exam was otherwise without abnormality on direct and retroflexion views. Impression: - The examined portion of the ileum was normal. - One 5 mm polyp in the ascending colon, removedwith a cold snare. Resected and retrieved. - Non-bleeding internal hemorrhoids. - The examination was otherwise normal on directand retroflexion views. Recommendation: - The patient will be observed post-procedure,until all discharge criteria are met. - Surveillance colonoscopy in 5 years pending pathology results. - Continue home medications. - Resume previous diet. - Follow up with referring physician as previously scheduled. - In the unusual situation that you developabdominal, bleeding or other significant problems in the days following this procedure please call [phone] ask for my nurse, Hina Wilkinson. After hours and evenings please call [phone] and speak to theGI fellow tong carrier. Please tell the fellow that Dr. Zapata did your procedure and that you were instructed to have the fellow call me or thephysician covering for me to discuss the management of your condition. If you have an urgent problem, please goto the nearest emergency room and have the ER doctorcall my office during the day or the GI fellow afterhours and weekends to arrange admission or transfer toour facility. Please bring this report with you if yougo to the emergency room. Attending Participation: I personally performed the entire procedure. Electronically signed by Rick Zapata MD Rick Zapata M.D. 08/16/2023 8:56:49 AM Number of Addenda: 0 Note Initiated On: 08/16/2023 8:36 AM Rick Zapata MD ENDOSCOPY PROCEDURES Final Result from Last 3 Months or Most Recently Relevant to Health Maintenance Insurance [facility] [employer] [facility] [employer] [facility] [employer] Advance Directives For more information, please contact: [phone] * Full Code (Latest Code Status on File) Date Activated Date Inactivated Comments 08/16/2023 7:04 AM 08/16/2023 1:32 PM * Full Code Date Activated Date Inactivated Comments 01/24/2021 7:36 AM 01/24/2021 1:11 PM Care Teams Volunteer Services Coordinator Relationship Specialty Start Date End Date Simone Salvador MD PCP - General 08/30/08
--- OUTSIDE RECORDS SUMMARY | 2025-02-19 11:00 | XMS_ITS | Encounter Summary ---
Author Organization [facility] Address [address] [place] [address] Care Team Providers Care Television Agent Name Role Phone Simone Salvador MD Primary Care Provider [phone] Encounter Details Date Type Department Care Team (Late st Contact Info) Description 07/18/2015 Abstract [facility] CONVERSION [address] [place] [address] , Generic ConversionMD Social History Tobacco Use [...] Rule Out 03/04/2021 03/04/2021 03/04/2021 8:01 PM STEEL POST INSTALLER SUPERVISOR documented as of this encounter Care Teams Television Agent Relationship Specialty Start Date End Date Simone Salvador MD [address] [address] PCP - General FAMILY PRACTICE 10/17/18 documented as of this encounter
[2025-02-19 11:48] VITALS: BP 99/63; PULSE 69; RESP 14; TEMP 36.4; O2SAT 100
--- NOTE | 2025-02-19 17:33 | PC.NURSE ---
pt not in lobby when called, LWBS
--- OUTSIDE RECORDS SUMMARY | 2025-02-19 17:58 | XMS_ITS | Clinical Summary ---
Author Organization [facility] Address [address] [place] [address] Care Team Providers Care Legal Associate Name Role Phone Unavailable Primary Care Provider Unavailabl e Source Comments [facility],non-owned Affiliates and Associated Physician Practices is amultiple site organization consisting of ambulatory clinics and hospital sitesin [place], [place], [place] and [place]. This disclosure is being madepursuant to the Care Everywhere program and may not contain all information available regarding this patient. Last updated 17.[facility] Social History Tobacco Use Types Packs/Day Years [...]
--- OUTSIDE RECORDS SUMMARY | 2025-02-19 17:58 | XMS_ITS | Clinical Summary ---
Author Organization [facility] Address [address] [place] [address] Care Team Providers Care President And Cmo Name Role Phone Simone Salvador MD Primary Care Provider [phone] Allergies No known active allergies Medications * [...] 1 tablet (100 mcg total) by mouth dealer account manager before breakfast 1 Active montelukast (SINGULAIR) [...] eye exams and [place] return to [place] as necessary. Assessment & Plan (12/14/2021 3:57 [...] exam. Patient has annual eye exams at [place] and was noted to have nevus OD at last exam. She is asymptomatic. The lesion is small, flat, without fluid or orange pigment. Overall, appears low risk. Recommend observation for now. History of colon polyps 12/16/2020 Overview (12/16/2020): Added automatically from request for surgery [id number] Family history of colonic polyps 12/16/2020 Overview (12/16/2020): Added automatically from request for surgery [id number] Acute non-recurrent sinusitis 01/13/2019 Mild intermittent asthma without complication Encounters Date Type Department Care Team Description 12/04/2024 Immunization [facility]ational [facility] [address] [place] [address] Yefri Ramírez RN from Last 3 Months [...] on file Legal Sex Female 5:02 PM MARKETING ASSOCIATE Gender Identity Not on file Sexual Orientation [...] Read Routine (OP Routine) 04/28/2024 2:16 PM MARKETING ASSOCIATE Screening mammogram, encounter for COLONOSCOPY 08/16/2023 8:36 AM CDT from Last 3 Months or Most Recently Relevant to Health Maintenance Results * Screening Mammogram Bilateral W Sebastián (04/28/2024 2:16 PM MARKETING ASSOCIATE) Anatomical Region Laterality Modality Breast Bilateral Mammography Narrative 04/29/2024 9:47 AM MARKETING ASSOCIATE Mammogram Technique: Bilateral Digital Breast Tomosynthesis, Bilateral C-view 2D Screening mammogram. Views obtained: bilateral craniocaudal and bilateral mediolateral oblique. Computer Aided Detection was performed. Mammogram Findings: The present examination has been compared to prior imaging studies performed at [facility] on 02/23/2021 and 04/09/2023, and at [facility] on 03/01/2022. There are scattered areas [...] Center on 02/23/2021 and 04/09/2023, and at [facility] on 03/01/2022. There are scattered areas [...] Outpatient Age: 52 Gender: Female Attending MD: Rick Zapata M.D. Room: [facility] ENDOSCOPY ROOM 04 Note Status: Finalized [...] The scope was passed under direct vision.The [id number] was introduced through the anusand advanced to [...] the days following this procedure please call [phone] ask for my nurse, Hina Wilkinson. After hours and evenings please call [phone] and speak to theGI fellow air conditioning mechanic industrial. Please tell the fellow that Dr. Zapata [...] Most Recently Relevant to Health Maintenance Insurance [facility] [employer] PLUS [facility] [employer] [facility] [employer] PLUS Advance Directives For more information, please contact: [phone] * Full Code (Latest Code Status on File) Date Activated Date Inactivated Comments 08/16/2023 7:04 AM 08/16/2023 1:32 PM * Full Code Date Activated Date Inactivated Comments 01/24/2021 7:36 AM 01/24/2021 1:11 PM Care Teams President And Cmo Relationship Specialty Start Date End Date Simone Salvador MD PCP - General 08/30/08
--- OUTSIDE RECORDS SUMMARY | 2025-02-19 17:58 | XMS_ITS | Encounter Summary ---
Author Organization [facility] Address [address] [place] [address] Care Team Providers Care Typewriter Repairer Name Role Phone Simone Salvador MD Primary Care Provider [phone] Encounter Details Date Type Department Care Team (Late st Contact Info) Description 07/18/2015 Abstract [facility] CONVERSION [address] [place] [address] , Generic ConversionMD Social History Tobacco Use [...] Rule Out 03/04/2021 03/04/2021 03/04/2021 8:01 PM STRIPPER PRELIMINARY documented as of this encounter Care Teams Typewriter Repairer Relationship Specialty Start Date End Date Simone Salvador MD [address] [place] [address] PCP - General FAMILY PRACTICE 10/17/18 documented as of this encounter
--- OUTSIDE RECORDS SUMMARY | 2025-02-19 17:58 | XMS_ITS | Encounter Summary ---
Author Organization [facility] Address [address] [place] [address] Care Team Providers Care Marble Coper Name Role Phone Unavailable Primary Care Provider Unavailabl e Encounter Details Date Type Department Care Team (Late st Contact Info) Description 07/28/2019 Lab Requisition [facility] [address] [place] [address] Social History Tobacco Use Types Packs/Day Years [...] Not detected, Invalid 07/28/2019 8:54 PM CDT [facility] Microbiology SPECIMEN FROM NASOPHARYNGEAL STRUCTURE / Unknown Collection / Unknown 07/27/2019 3:48 PM CDT 07/28/2019 11:30 AM CDT Narrative [facility] - 07/28/2019 8:54 PM CDT This Real Time RT-PCR assay was developed and its performance characteristics determined by [facility]. This test has been authorized [...] - MICROBIOLOGY ORDERABLES Fi nal Result [facility] [address] [place], [place] [address], [facility] [phone] documented in this encounter Visit Diagnoses Not on filedocumented in this encounter Additional Health Concerns Infection Onset Date Last Indicated Resolved Time COVID-19 Under Investigation 07/28/2019 07/27/2019 07/28/2019 8:54 PM CDT documented as of this encounter
--- OUTSIDE RECORDS SUMMARY | 2025-02-19 17:58 | XMS_ITS | Encounter Summary ---
Author Organization [facility] Address [address] [place] [id number] Care Team Providers Care Records Management Manager Name Role Phone Simone Salvador MD Primary Care Provider [phone] Encounter Details Date Type Department Care Team (Late st Contact Info) Description 07/21/2016 Abstract [facility] CONVERSION [address] [place] [address] , Generic ConversionMD Social History Tobacco Use [...] Rule Out 03/04/2021 03/04/2021 03/04/2021 8:01 PM TYPING CHECKER documented as of this encounter Care Teams Records Management Manager Relationship Specialty Start Date End Date Simone Salvador MD [address] [place] [id number] PCP - General FAMILY PRACTICE 10/17/18 documented as of this encounter
--- OUTSIDE RECORDS SUMMARY | 2025-02-19 17:58 | XMS_ITS | Clinical Summary ---
Author Organization [facility] Address [address] [place] [address] Care Team Providers Care Adjunct Physics Instructor Name Role Phone Simone Salvador MD Primary Care Provider [phone] Allergies No known active allergies Medications ALPRAZolam [...] perform ADLs independently General No Jamila Palacios, gift wrapper Procedure Name Priority Date/Time Associated Diagnosis Comments [...] - benign findings. Routine screening mammography recommended [facility] BI-RADS Categories: Category 0 - needs additional [...] with computer aided detection. Interpreted By: Cristofer Ramierz, 11/24/2018 1:17 PM Amy Mcgregor MD MAMMO Final Result from Last 3 Months or Most Recently Relevant to Health Maintenance Insurance Advance Directives * Full Code (Latest Code Status on File) Date Activated Date Inactivated Comments 03/05/2021 10:51 AM 03/08/2021 2:08 PM * Full Code Date Activated Date Inactivated Comments 11/04/2018 10:54 AM 11/05/2018 1:30 PM Care Teams Adjunct Physics Instructor Relationship Specialty Start Date End Date Simone Salvador MD [address] [place] [address] PCP - General FAMILY PRACTICE 10/17/18
--- OUTSIDE RECORDS SUMMARY | 2025-02-19 17:58 | XMS_ITS | Clinical Summary ---
Author Organization [facility] Address [address] [place] [address] Care Team Providers Care Clay Artisan Name Role Phone Unavailable Primary Care Provider [...]
== END 2025-02-19 17:33 | disposition left against medical advice (07) ==
LOC: ANHED 17:55
PROVIDERS: PCP Family Medicine
DX: M54.50 Low back pain, unspecified (principal)
CPT/HCPCS: 99199